=== PATIENT | male | born 1995 | race Caucasian/White ===

== ENCOUNTER 2017-07-06 18:01 | Emergency (ER) | payer OTHER ==
[~2017-07-06] VITALS: Ht 190.5 cm; Wt 90.7 kg
[~2017-07-06 18:01] MED LIST: AMOXICILLIN500 M2 PO; ANAPROX DS550 MG PO; AUGMENTIN ES-6100 ML PO; BACTRIM DS 8001 TA1 PO; CLARITIN5 MG/5 ML PO; CLINDAMYCIN HC300 MG PO; CYCLOBENZAPRINE10 MG PO; DARVOCET N 1001 TAB PO; HYDROCODONE BIT1 T11 PO; KEFLEX500 M1 PO; LIDEX 0.05% CRE15 GM T; MOTRIN600 MG PO; MOTRIN800 MG PO; NAPROSYN500 MG PO; NAPROXEN SOD550 MG PO; PREDNISONE10 MG PO; PRELONE5 MG/5 ML PO; Peridex 473 ML473 ML PO; TYLENOL WITH CO1 TA1 PO; ULTRAM50 MG PO; ZOFRAN ODT4 MG SL
[2017-07-06 18:06] VITALS: BP 155/97
[2017-07-06 18:27] LABS: BASO # 0.1 10*3/uL (0.0-0.1); BASO % 0.7 % (0.0-1.0); HEMATOCRIT 44.7 % (42.0-52.0); HEMOGLOBIN 15.2 g/dl (14.0-18.0); LYMPH # 1.9 10*3/uL (1.3-4.4); LYMPH % 18.3 % (27.0-41.0); MEAN CELL VOLUME 90.1 fl (80.0-94.0); MEAN CORPUSCULAR HGB 30.6 pg (27.0-31.0); MONO # 0.6 10*3/uL (0.1-1.0); MONO % 6.1 % (3.0-9.0); NEUT # 7.5 10*3/uL (2.3-7.9); NEUT % 74.6 % (47.0-73.0); PLATELET COUNT AUTOMATED 240 10*3/uL (130-400); RED BLOOD COUNT 4.96 10*6/uL (4.50-5.90); RED CELL DISTRI WIDTH 12.7 % (0-14.5); WHITE BLOOD COUNT 10.1 10*3/uL (4.8-10.8)
[2017-07-06 18:44] LABS: ALBUMIN 3.9 gm/dl (3.1-4.5); ALKALINE PHOSPHATASE 71 U/L (45-117); BUN 12 mg/dl (7-24); CHLORIDE 107 mmol/L (98-107); CREATININE 0.86 mg/dL (0.70-1.30); POTASSIUM 3.4 mmol/L (3.5-5.1); SGOT/AST 19 IU/L (3-35); SGPT/ALT 40 U/L (12-78); SODIUM 141 mmol/L (136-145); TOTAL PROTEIN 7.4 gm/dL (6.4-8.2)
[2017-07-06] MEDS ORDERED: ZOFRAN ODT4 MG SL (19:13)
== END 2017-07-06 19:18 | disposition home or self-care (01) ==
LOC: ED 18:01
PROVIDERS: Nurse Practitioner Family
DX: K29.00 Acute gastritis without bleeding (principal); Z88.6 Allergy status to analgesic agent

== ENCOUNTER 2017-09-14 12:45 | Emergency (ER) | payer OTHER ==
[~2017-09-14] VITALS: Ht 190.5 cm; Wt 90.7 kg
[2017-09-14 13:06] VITALS: BP 151/88
[2017-09-14] MEDS ORDERED: OMEPRAZOLE MAGN20 MG PO (13:18)
== END 2017-09-14 13:50 | disposition home or self-care (01) ==
LOC: ED 12:45
DX: R10.84 Generalized abdominal pain (principal); R05 Cough; Z88.6 Allergy status to analgesic agent

== ENCOUNTER 2017-09-20 19:38 | Emergency (ER) | payer OTHER ==
[~2017-09-20 19:38] MED LIST changes: +OMEPRAZOLE MAGN20 MG PO
== END 2017-09-20 20:50 | disposition home or self-care (01) ==
LOC: ED 19:38
DX: K08.89 Other specified disorders of teeth and supporting structures (principal); Z53.21 Procedure and treatment not carried out due to patient leaving prior to being seen by health care provider

== ENCOUNTER 2018-02-08 14:27 | Emergency (ER) | payer OTHER ==
[~2018-02-08] VITALS: Ht 190.5 cm; Wt 90.7 kg
[2018-02-08 14:31] VITALS: BP 166/104
[2018-02-08] MEDS ORDERED: CLINDAMYCIN HC300 MG PO (14:43)
[2018-02-08] MEDS ORDERED: ANAPROX DS550 MG PO (14:43)
== END 2018-02-08 14:58 | disposition home or self-care (01) ==
LOC: ED 14:27
DX: K08.89 Other specified disorders of teeth and supporting structures (principal); Z88.6 Allergy status to analgesic agent

== ENCOUNTER 2018-02-16 14:58 | Emergency (ER) | payer OTHER ==
[~2018-02-16] VITALS: Wt 95.3 kg
[2018-02-16 14:59] VITALS: BP 120/87
[2018-02-16] MEDS ORDERED: ANAPROX DS550 MG PO (16:45)
[2018-02-16] MEDS ORDERED: ROBAXIN500 M1 PO (16:45)
== END 2018-02-16 17:10 | disposition home or self-care (01) ==
LOC: ED 14:58
DX: M54.5 Low back pain (principal); K08.89 Other specified disorders of teeth and supporting structures; Z79.899 Other long term (current) drug therapy; Z88.6 Allergy status to analgesic agent

== ENCOUNTER 2018-03-02 00:03 | Emergency (ER) | payer SELFPAY ==
[~2018-03-02] VITALS: Ht 190.5 cm; Wt 102.5 kg
[~2018-03-02 00:03] MED LIST changes: +ROBAXIN500 M1 PO
[2018-03-02 00:37] VITALS: BP 148/96
[2018-03-02 01:07] LABS: BASO # 0.1 10*3/uL (0.0-0.1); BASO % 1.1 % (0.0-1.0); EOS # 0.1 10*3/uL (0.0-0.4); EOS % 0.7 % (1.0-4.0); HEMATOCRIT 45.7 % (42.0-52.0); HEMOGLOBIN 15.8 g/dl (14.0-18.0); LYMPH # 2.9 10*3/uL (1.3-4.4); LYMPH % 32.4 % (27.0-41.0); MEAN CELL VOLUME 89.3 fl (80.0-94.0); MEAN CORPUSCULAR HGB 30.9 pg (27.0-31.0); MEAN CORPUSCULAR HGB CONC 34.6 g/dl (33.0-37.0); MEAN PLATELET VOLUME 10.6 fl (9.6-12.3); MONO # 0.6 10*3/uL (0.1-1.0); MONO % 6.6 % (3.0-9.0); NEUT # 5.4 10*3/uL (2.3-7.9); NEUT % 59.1 % (47.0-73.0); PLATELET COUNT AUTOMATED 285 10*3/uL (130-400); RED BLOOD COUNT 5.12 10*6/uL (4.50-5.90); WHITE BLOOD COUNT 9.1 10*3/uL (4.8-10.8)
[2018-03-02 01:24] LABS: ALBUMIN 3.8 gm/dl (3.1-4.5); BUN 15 mg/dl (7-24); CHLORIDE 106 mmol/L (98-107); CREATININE 1.04 mg/dL (0.70-1.30); LIPASE 135 U/L (73-393); POTASSIUM 3.5 mmol/L (3.5-5.1); SGOT/AST 16 IU/L (3-35); SGPT/ALT 32 U/L (12-78); SODIUM 141 mmol/L (136-145); TOTAL PROTEIN 7.3 gm/dL (6.4-8.2)
[2018-03-02] MEDS ORDERED: ZOFRAN ODT4 MG SL (01:24)
[2018-03-02 01:25] LABS: ALKALINE PHOSPHATASE 73 U/L (45-117)
== END 2018-03-02 02:03 | disposition home or self-care (01) ==
LOC: ED 00:03
PROVIDERS: Emergency Medicine Emergency Medical Services
DX: K59.00 Constipation, unspecified (principal); R11.10 Vomiting, unspecified; Z88.6 Allergy status to analgesic agent; Z87.01 Personal history of pneumonia (recurrent)

== ENCOUNTER 2023-04-05 21:16 | Emergency (ER) | payer MEDICAID ==
[~2023-04-05] VITALS: Ht 190.5 cm; Wt 102.1 kg
[2023-04-05 21:23] VITALS: BP 178/92
[2023-04-05] MEDS ORDERED: Motrin,Rufen800 MG PO (22:01)
== END 2023-04-05 22:30 | disposition home or self-care (01) ==
LOC: ED 21:16
DX: M79.672 Pain in left foot (principal); Z88.8 Allergy status to other drugs, medicaments and biological substances

== ENCOUNTER 2024-04-23 12:22 | Emergency (ER) | payer MEDICAID ==
[~2024-04-23] VITALS: Ht 190.5 cm; Wt 102.1 kg
[~2024-04-23 12:22] MED LIST changes: +Motrin,Rufen800 MG PO
[2024-04-23 12:49] VITALS: BP 160/104
[2024-04-23] MEDS ORDERED: Acetaminophen/Hydrocodone 5 MG/325 MG TABLET PO ONE (13:25)
== END 2024-04-23 14:13 | disposition home or self-care (01) ==
LOC: ED 12:22
DX: S90.121A Contusion of right lesser toe(s) without damage to nail, initial encounter (principal); Z88.6 Allergy status to analgesic agent; X58.XXXA Exposure to other specified factors, initial encounter; Y93.89 Activity, other specified; Y92.89 Other specified places as the place of occurrence of the external cause; Y99.8 Other external cause status

== ENCOUNTER 2024-09-09 15:02 | Emergency (ER) | payer MEDICAID ==
[~2024-09-09] VITALS: Ht 187.9 cm; Wt 113.4 kg
[2024-09-09 15:18] VITALS: BP 187/98
[2024-09-09] MEDS ORDERED: Ketorolac Tromethamine 30 MG/ML VIAL IM ONE (15:25)
== END 2024-09-09 15:48 | disposition home or self-care (01) ==
LOC: ED 15:02
DX: S62.326A Displaced fracture of shaft of fifth metacarpal bone, right hand, initial encounter for closed fracture (principal); Z88.5 Allergy status to narcotic agent; W22.8XXA Striking against or struck by other objects, initial encounter; Y93.89 Activity, other specified; Y92.89 Other specified places as the place of occurrence of the external cause; Y99.8 Other external cause status

== ENCOUNTER 2025-03-27 17:31 | Emergency (ER) | payer MEDICAID ==
[~2025-03-27] VITALS: Ht 190.5 cm; Wt 102.1 kg
[2025-03-27 18:03] VITALS: BP 195/118
[2025-03-27] MEDS ORDERED: NAPROSYN500 MG PO (20:07)
[2025-03-27] MEDS ORDERED: Acetaminophen/Oxycodone 5 MG/325 MG TABLET PO ONE (20:10)
[2025-03-27] MEDS ORDERED: Ketorolac Tromethamine 60 MG/2 ML VIAL IM ONE (20:10)
== END 2025-03-27 20:37 | disposition home or self-care (01) ==
LOC: ED 17:31
DX: S16.1XXA Strain of muscle, fascia and tendon at neck level, initial encounter (principal); S00.03XA Contusion of scalp, initial encounter; R03.0 Elevated blood-pressure reading, without diagnosis of hypertension; Z88.8 Allergy status to other drugs, medicaments and biological substances; W18.39XA Other fall on same level, initial encounter; Y93.89 Activity, other specified; Y92.89 Other specified places as the place of occurrence of the external cause; Y99.8 Other external cause status

== ENCOUNTER 2025-09-18 10:47 | Emergency (ER) | payer MEDICAID ==
[~2025-09-18] VITALS: Ht 190.5 cm; Wt 102.1 kg
[2025-09-18 10:57] VITALS: BP 184/111
[2025-09-18] MEDS ORDERED: Acetaminophen/Hydrocodone 5 MG/325 MG TABLET PO ONE (11:15)
[2025-09-18] MEDS ORDERED: Tdap Vaccine 0.5 ML SYR (Adult Vaccine) IM ONE (11:30)
[2025-09-18 11:32] LABS: BILIRUBIN Negative (Negative); BLOOD Negative (Negative); CLARITY Clear (Clear); COLOR Yellow (Yellow); KETONE Negative (Negative); LEUKO ESTERASE Trace (Negative); NITRITE Negative (Negative); PH 7.0 (4.5-8.0); SPECIFIC GRAVITY 1.025 (1.001-1.030); UROBILINOGEN 1.0 E.U./dl (0.0-1.0)
[2025-09-18 11:38] LABS: BACTERIA TRACE
[2025-09-18] MEDS ORDERED: VIBRAMYCIN100 MG PO (12:10)
[2025-09-18] MEDS ORDERED: HYDROCODONE-AC1 EAC1 PO (12:10)
== END 2025-09-18 12:19 | disposition home or self-care (01) ==
LOC: ED 10:47
PROVIDERS: Nurse Practitioner Family
DX: S71.112A Laceration without foreign body, left thigh, initial encounter (principal); I10 Essential (primary) hypertension; Z88.5 Allergy status to narcotic agent; W26.0XXA Contact with knife, initial encounter; Y93.89 Activity, other specified; Y92.89 Other specified places as the place of occurrence of the external cause; Y99.8 Other external cause status